=== PATIENT | male | born 1950 | race Caucasian/White ===

== ENCOUNTER 2022-11-03 09:01 | Emergency (ER) | payer MEDICARE ==
[~2022-11-03] VITALS: Ht 170.2 cm; Wt 66.0 kg
[2022-11-03 09:24] VITALS: BP 171/81
[2022-11-03] MEDS ORDERED: bacitracin 15gm ointment TP ONE (09:35)
== END 2022-11-03 10:31 | disposition home or self-care (01) ==
LOC: ER 09:02
DX: S40.022A Contusion of left upper arm, initial encounter (principal); S00.12XA Contusion of left eyelid and periocular area, initial encounter; W18.39XA Other fall on same level, initial encounter; Y93.89 Activity, other specified; Y92.89 Other specified places as the place of occurrence of the external cause; Y99.8 Other external cause status
CPT/HCPCS: 29125; 73110; 99284; J7030; A6449